=== PATIENT | female | born 1950 | race African-American/Black ===

== ENCOUNTER → 2017-01-17 | Outpatient (CLI) | payer OTHER | LOC: RT 13:39 | PROVIDERS: ATTEND Psychiatry & Neurology Neurology | DX: Z87.898 Personal history of other specified conditions (principal) | CPT/HCPCS: 95819 ==

== ENCOUNTER → 2017-02-16 | Outpatient (CLI) | payer OTHER ==
--- NOTE | 2017-02-16 12:32 | MRI ---
STUDY: MRI OF THE BRAIN WITHOUT GADOLINIUM HISTORY: Short-term memory loss. Technique: Multiplanar multi-sequence MRI of the brain was obtained utilizing standard departmental protocol. Sagittal and axial T1, axial T2, FLAIR, diffusion (DWI/ADC) images through the brain were performed. Comparison: None. Findings: The sulci, cisterns and ventricles are age appropriate. There are thin confluent and few scattered f oci of T2 prolongation in the periventricular and subcortical white matter of both hemispheres. This is a nonspecific finding which likely represents mild microangiopathic change in a patient of this age. There is no evidence of acute territorial infarction, hemorrhage, mass, mass effect, or midline shif t. There are no abnormal intra-axial or extra-axial fluid collections. The major intracranial vascul ar flow voids appear intact. The vertebral arteries are codominent. IMPRESSION: 1. No evidence of acute intracranial abnormality. 2. Nonspecific white matter change. Reported By:
== END ==
LOC: RAD 10:03
PROVIDERS: ATTEND Psychiatry & Neurology Neurology
DX: Z87.898 Personal history of other specified conditions (principal); G30.0 Alzheimer's disease with early onset; R51 Headache
CPT/HCPCS: 70551